=== PATIENT | female | born 1975 | race Caucasian/White ===

== ENCOUNTER → 2018-08-08 | Outpatient (CLI) | payer BC ==
[~2018-08-08] MED LIST: ASPI-757 PO; DOCU100C56 PO; LEVO25TA61 PO; LOR5/325 PO; NAPR500T31 PO; ONDA4TAB9 PO; OXYC-823 PO; OXYC5CAP21 PO; RIVA15TA PO
--- NOTE | 2018-08-09 10:48 | RADIOLOGY IMAGING REPORT ---
FACILITY: [facility] PATIENT NAME: MAGEN WALLIS : [id number] MR: [id number] V: [id number] EXAM DATE: [id number] ORDERING PHYSICIAN: TAMARA MOREJON TECHNOLOGIST: Devora Meredith PROCEDURE: BILATERAL DIGITAL SCREENING MAMMOGRAM WITH CAD ASSISTED INTERPRETATION & 3D TOMOSYNTHESIS REASON FOR STUDY: Screening FAMILY HISTORY OF BREAST CANCER: None BREAST PROCEDURES/TREATMENTS: None COMPARISON: 12/11/15 VIEWS OBTAINED: Bilateral 2D & 3D full field CC & MLO projections BREAST DENSITY: The breasts are heterogeneously dense which can obscure small masses. MAMMOGRAM FINDINGS: The parenchymal pattern has remained stable allowing for difference in mammographic technique & patient positioning. IMPRESSION: BIRADS 1: Negative. DIAGNOSTIC CATEGORY 1--NEGATIVE. RECOMMENDATIONS: ROUTINE MAMMOGRAM AND CLINICAL EVALUATION. Dictated by: Estrella Heard M.D. on 08/08/2018 at 10:56 Transcribed by: [email or web address] on 08/08/2018 at 13:46 Approved by: Estrella Heard M.D. on 08/09/2018 at 10:47 [facility]
== END ==
LOC: MAMO 00:30
PROVIDERS: ATTEND Nurse Practitioner Psychiatric/Mental Health
DX: Z12.31 Encounter for screening mammogram for malignant neoplasm of breast (principal)
CPT/HCPCS: 77063; 77067